=== PATIENT | male | born 1955 | race Caucasian/White ===

== ENCOUNTER 2019-05-21 12:49 | Emergency (ER) | payer BC ==
[~2019-05-21] VITALS: Ht 188 cm; Wt 79.4 kg
[~2019-05-21 12:49] MED LIST: LOVENOX; NORCO; SEPTRA
--- NOTE | 2019-05-21 13:05 | NUR ---
Patient to ER bed 01 to gown for evaluation. Side rails up.
--- NOTE | 2019-05-21 13:10 | NUR ---
Patient arrived in the ED c/o right hip pain post mechanical fall today. Denied any chest pain or shortness of breath. Denied any fevers, chills, nausea or vomiting. Patient is alert and oriented x4, respirations even and unlabored, speaking in full sentences. VSS and pain level 9/10. Informed of approximate wait time. Instructed to notify ED staff [facility] for any changes in condition or worsening of symptoms. Patient verbalized understanding.
--- NOTE | 2019-05-21 13:20 | NUR ---
ER Dr. Sosa at bedside examining patient.
[2019-05-21 13:53] VITALS: BP_SYST 161
--- NOTE | 2019-05-21 14:04 | NUR ---
Patient taken to CT via gurney, in stable condition.
[2019-05-21] MEDS ORDERED: MORPHINE 2 MG/ML INJ. SYRINGE IM ONE (14:15)
--- NOTE | 2019-05-21 14:24 | NUR ---
Patient is back from CT in stable condition.
--- NOTE | 2019-05-21 14:25 | NUR ---
Administered Morphine Sulfate IM as ordered by Dr. Sosa. Patient tolerated the medications well. See eMAR for details.
--- NOTE | 2019-05-21 15:22 | NUR ---
ER Dr. Sosa at bedside re-examining patient and giving discharge instructions.
--- NOTE | 2019-05-21 15:35 | NUR ---
Patient given written and verbal discharge instructions and verbalizes understanding. ER MD discussed with patient the results and treatment provided. Patient in stable condition. ID arm band removed. Rx of Tramadol and [place] given. Patient educated on pain management and to follow up with PMD. Pain Scale 0/10. Opportunity for questions provided and answered. Medication side effect fact sheet provided.
[2019-05-21 15:53] VITALS: BP_SYST 134
== END 2019-05-21 15:35 | disposition home or self-care (01) ==
LOC: SED 12:49
DX: S70.01XA Contusion of right hip, initial encounter (principal); W18.39XA Other fall on same level, initial encounter; Y93.89 Activity, other specified; Y92.89 Other specified places as the place of occurrence of the external cause; Y99.8 Other external cause status
CPT/HCPCS: 72192; 73030; 96372; 99284; J2270

== ENCOUNTER 2023-10-10 09:43 | Emergency (ER) | payer BC, OTHER ==
[~2023-10-10] VITALS: Ht 188 cm; Wt 93.0 kg
[2023-10-10 09:48] VITALS: BP_SYST 144; PULSE 98; RESP 16; TEMP 97; O2SAT 97
[2023-10-10] MEDS ORDERED: KETOROLAC TROMETHAMINE 15 MG VIAL IVP ONE (10:00)
[2023-10-10] MEDS: IBUPROFEN 600 MG TABLET PO ONE (10:14)
[2023-10-10 10:30] LABS: CALCIUM 9.5 mg/dL (8.4-11.0); CREATININE 1.17 mg/dL (0.55-1.30); POTASSIUM 3.5 mmol/L (3.5-5.1)
[2023-10-10 10:41] LABS: PROTHROMBIN TIME 10.4 SECS (9.5-12.5)
[2023-10-10 11:00] LABS: BASOPHILS % (AUTO) 0.5 % (0.0-2.0); EOSINOPHILS # (AUTO) 0.1 K/uL (0.0-0.4); EOSINOPHILS % (AUTO) 1.8 % (0.0-4.0); HEMATOCRIT 41.8 % (36-54); HEMOGLOBIN 14.9 g/dL (14.0-18.0); LYMPHOCYTES # (AUTO) 1.5 K/uL (1.0-5.5); LYMPHOCYTES % (AUTO) 26.7 % (20.5-51.5); MEAN CORPUSCULAR HEMOGLOBIN 33 pg (27-31); MEAN CORPUSCULAR HGB CONC 36 % (32-36); MEAN CORPUSCULAR VOLUME 92 fL (79.0-98.0); MONOCYTES # (AUTO) 0.5 K/uL (0.0-1.0); MONOCYTES % (AUTO) 9.4 % (1.7-9.3); NEUTROPHILS # (AUTO) 3.5 K/uL (1.8-7.7); NEUTROPHILS % (AUTO) 61.6 % (40.0-70.0); PLATELET COUNT (AUTO) 339 K/uL (130-430); RED BLOOD CELL COUNT(AUTO) 4.56 MIL/uL (4.2-6.2); RED CELL DISTRIBUTION WIDTH 13.1 % (9.0-15.0); WHITE BLOOD COUNT (AUTO) 5.7 K/uL (4.8-10.8)
[2023-10-10 13:13] VITALS: BP_SYST 123; PULSE 78; RESP 16; TEMP 97.7; O2SAT 97
== END 2023-10-10 13:01 | disposition home or self-care (01) ==
LOC: SED 09:43
DX: M79.662 Pain in left lower leg (principal); M79.652 Pain in left thigh; E11.65 Type 2 diabetes mellitus with hyperglycemia; I10 Essential (primary) hypertension; Z98.890 Other specified postprocedural states; Z79.899 Other long term (current) drug therapy
CPT/HCPCS: 36415; 80048; 85025; 85610; 85730; 93970; 99284